=== PATIENT | male | born 1950 | race Caucasian/White ===

== ENCOUNTER 2016-02-18 09:44 | Emergency (ER) | payer OTHER ==
[~2016-02-18] VITALS: Ht 190.5 cm; Wt 104.5 kg
[2016-02-18] MEDS ORDERED: NORCO 5/3251 TABLET PO (12:58)
[2016-02-18] MEDS ORDERED: FLEXERIL10 MG PO (12:58)
[2016-02-18 14:34] VITALS: BP 151/64
== END 2016-02-18 14:40 | disposition home or self-care (01) ==
LOC: EME 09:44
DX: M54.31 Sciatica, right side (principal)
CPT/HCPCS: 72100; 99281; 99285; J1100; J1170; J1885; J3360; J7040

== ENCOUNTER 2017-05-08 14:43 | Inpatient (IN) | payer OTHER ==
[~2017-05-08] VITALS: Ht 190.5 cm; Wt 98.5 kg
[~2017-05-08 14:43] MED LIST: FLEXERIL10 MG PO; NORCO 5/3251 TABLET PO
[2017-05-08 15:52] LABS: HEMATOCRIT 47.2 % (38.0-50.0); HEMOGLOBIN 16.1 G/DL (12.5-16.6); MCH 30.2 PG (29.0-34.0); MCHC 34.1 G/DL (30.0-36.0); MCV 88.6 FL (86-99); PLATELET COUNT 322 K/uL (156-360); RBC DIS.WIDTH-CV 12.3 % (11.8-14.6); RBC DIS.WIDTH-SD 39.8 % (39-53); RED BLOOD COUNT 5.33 M/uL (4.00-5.50); WHITE BLOOD COUNT 10.8 K/uL (4.1-10.2)
[2017-05-08 16:05] LABS: CHLORIDE 106 mEq/L (99-109); POTASSIUM 5.6 mEq/L (3.7-5.4); SODIUM 142 mEq/L (136-147)
[2017-05-08 16:06] LABS: GLUCOSE 116 mg/dL (70-99)
[2017-05-08 16:10] LABS: CREATININE 1.1 mg/dL (0.6-1.3); GFR ESTIMATE (CALCULATED) > 59 mL/min/ (58.99-99999)
[2017-05-08 16:11] LABS: UREA NITROGEN (BUN) 14 mg/dL (9-23)
[2017-05-08 16:21] LABS: TROP-I INTERPRETATION NEGATIVE; TROPONIN-I < 0.01 ng/mL (0.0-0.30)
[2017-05-08 17:33] LABS: PTT 39.9 SEC (25-37)
[2017-05-08] MEDS ORDERED: FLOMAX0.4 MG PO (17:36)
[2017-05-08] MEDS ORDERED: DIOVAN80 MG PO (17:36)
[2017-05-08] MEDS ORDERED: CENTRUM ADULTS1 EACH PO (17:37)
[2017-05-08 20:22] LABS: MAGNESIUM 2.7 mg/dL (1.3-2.7)
[2017-05-08 20:45] VITALS: BP 127/101
[2017-05-08 20:55] VITALS: BP 127/90
[2017-05-08 21:00] VITALS: BP 127/90
[2017-05-08 22:00] VITALS: BP 94/59
[2017-05-08 23:00] VITALS: BP 69/53
[2017-05-08 23:30] VITALS: BP 101/75
[2017-05-09] VITALS (24 sets, daily range): BP systolic 15–174; BP diastolic 60–93
[2017-05-09 06:23] LABS: HEMATOCRIT 41.6 % (38.0-50.0); HEMOGLOBIN 13.8 G/DL (12.5-16.6); MCH 29.2 PG (29.0-34.0); MCHC 33.2 G/DL (30.0-36.0); MCV 88.1 FL (86-99); PLATELET COUNT 277 K/uL (156-360); RBC DIS.WIDTH-CV 12.4 % (11.8-14.6); RBC DIS.WIDTH-SD 40.5 % (39-53); RED BLOOD COUNT 4.72 M/uL (4.00-5.50); WHITE BLOOD COUNT 11.4 K/uL (4.1-10.2)
[2017-05-09 06:34] LABS: ALBUMIN 3.8 G/DL (3.2-4.8); ALKALINE PHOSPHATASE 35 IU/L (3-129); ALT (GPT) 13 IU/L (3-49); AST (GOT) 12 IU/L (2-34); CHLORIDE 110 MEQ/L (99-109); CREATININE 0.9 MG/DL (0.6-1.3); GFR ESTIMATE (CALCULATED) > 59 mL/min/ (58.99-99999); GLUCOSE 104 mg/dL (70-99); SODIUM 143 MEQ/L (136-147); TOTAL BILIRUBIN 0.4 MG/DL (0.0-1.0); TOTAL PROTEIN 5.9 G/DL (6.4-8.3); UREA NITROGEN (BUN) 13 mg/dL (9-23)
[2017-05-09 06:45] LABS: POTASSIUM 3.8 MEQ/L (3.7-5.4)
[2017-05-09 08:03] LABS: TROP-I INTERPRETATION NEGATIVE; TROPONIN-I < 0.01 ng/mL (0.0-0.30)
[2017-05-10] VITALS (14 sets, daily range): BP systolic 109–159; BP diastolic 42–88
[2017-05-10 05:53] LABS: HEMATOCRIT 41.8 % (38.0-50.0); HEMOGLOBIN 13.8 G/DL (12.5-16.6); MCH 29.4 PG (29.0-34.0); MCV 89.1 FL (86-99); PLATELET COUNT 265 K/uL (156-360); RBC DIS.WIDTH-CV 12.4 % (11.8-14.6); RBC DIS.WIDTH-SD 40.4 % (39-53); RED BLOOD COUNT 4.69 M/uL (4.00-5.50); WHITE BLOOD COUNT 8.9 K/uL (4.1-10.2)
[2017-05-10 06:12] LABS: CHLORIDE 106 MEQ/L (99-109); GFR ESTIMATE (CALCULATED) > 59 mL/min/ (58.99-99999); GLUCOSE 99 mg/dL (70-99); MAGNESIUM 2.1 mg/dl (1.3-2.7); POTASSIUM 4.2 MEQ/L (3.7-5.4); SODIUM 143 MEQ/L (136-147); UREA NITROGEN (BUN) 13 mg/dL (9-23)
[2017-05-10] MEDS ORDERED: CORDARONE200 MG PO (15:57)
[2017-05-10] MEDS ORDERED: LOSARTAN POTASS50 MG PO (15:57)
== END 2017-05-10 17:12 | disposition home or self-care (01) | DRG 309 ==
LOC: EME 14:43 → ENRESERV 20:06 → EDOF 20:16 → 4WEST 20:16
PROVIDERS: Emergency Medicine; Internal Medicine; Internal Medicine Pulmonary Disease
DX: I47.2 Ventricular tachycardia (principal); I42.9 Cardiomyopathy, unspecified; I47.1 Supraventricular tachycardia; G89.29 Other chronic pain; I11.9 Hypertensive heart disease without heart failure; I44.7 Left bundle-branch block, unspecified; N40.0 Benign prostatic hyperplasia without lower urinary tract symptoms; I48.91 Unspecified atrial fibrillation; M54.5 Low back pain; I71.2 Thoracic aortic aneurysm, without rupture; R61 Generalized hyperhidrosis; I45.89 Other specified conduction disorders; Z88.2 Allergy status to sulfonamides
CPT/HCPCS: 71046; 71275; 80048; 80053; 83735; 84484; 85027; 85610; 85730; 87641; 93005; 99281; 99285; J7040